=== PATIENT | female | born 2000 | race Caucasian/White ===

== ENCOUNTER 2018-08-06 10:06 | Observation (INO) ==
--- NOTE | 2018-08-06 10:18 | Emergency Department Note ---
ED Provider Note CHIEF COMPLAINT: Abdominal pain HISTORY OF PRESENTING ILLNESS: This is a 18-year-old female who presents to the emergency department with complaints of generalized lower abdominal pain for the past 6 days. She states the pain is worse after eating and with lying down at night, seems improved during the day when she is up and about, the pain does not radiate, she describes it as a dull ache with occasional sharp pains, and rates it as 8/10. She has been trying Pepto-Bismol with minimal relief of symptoms. She has had associated nausea and indigestion, but denies any vomiting or diarrhea. She was seen at [facility] today, sent here for further workup. She denies any fevers or chills, headaches, neck pain, chest pain, shortness of breath, back pain, urinary symptoms, abnormal vaginal bleeding or discharge, or unusual rash. Last menstrual period was 2 weeks ago. REVIEW OF SYSTEMS: A complete 10 point review of systems was reviewed with the patient with pertinent positives and negatives as per history of present illness. All else were negative. PAST MEDICAL HISTORY: Environmental allergies on [employer] SOCIAL HISTORY: Lives at home, she has a [employer] student, denies tobacco use ALLERGIES: No known allergies PHYSICAL EXAM: CONSTITUTIONAL: Pleasant and cooperative. No acute distress. Mildly dehydrated , but otherwise well appearing and well nourished. HEENT: Normocephalic, atraumatic. PERRL, EOMI. Pharynx normal. Tacky mucous membranes. NECK: Supple, full active range of motion without discomfort. RESPIRATORY: Clear to auscultation bilaterally with no wheezing, crackles, rhonchi or stridor. Equal expansion bilaterally. CARDIOVASCULAR: Regular rate and rhythm with no murmurs, rubs or gallops. Normal peripheral perfusion. No edema. GASTROINTESTINAL: Tender to palpation in the right lower quadrant, left lower quadrant, and suprapubic region. Also mildly tender to palpation in the epigastric region. Abdomen is soft and nondistended. No rebound tenderness or guarding. Bowel sounds present in all quadrants. No CVA tenderness bilaterally. MUSCULOSKELETAL: Full range of motion of all joints without discomfort. INTEGUMENTARY: No rash or other significant dermatologic conditions noted. NEUROLOGIC: Alert and oriented X 4 with normal affect. Normal strength and sensation in all 4 extremities. Normal speech. Normal gait observed. ED COURSE AND MEDICAL DECISION MAKING: CC: Patient presenting with complaint of abdominal pain and nausea DIFFERENTIAL DIAGNOSIS: Includes, but not limited to gastroenteritis, gastritis , peptic ulcer disease, ectopic , ovarian cyst, appendicitis, cholecystitis, cholelithiasis, pancreatitis, among others. INTERPRETATION OF LABS: Mild leukocytosis, no anemia, normal platelets, no significant electrolyte abnormalities, normal renal function, mildly elevated T bili, liver enzymes are otherwise normal and normal lipase. UA negative, urine negative. IMAGING: CT abd pelvis IV con only CT DOSE: 280.65 mGy.cm HISTORY: Pain lower abd pain TECHNIQUE: Multiaxial CT images of the abdomen and pelvis were performed following the use of intravenous contrast. A dose lowering technique was utilized adhering to the principles of ALARA. COMPARISON STUDY: None. FINDINGS: The lung bases are clear. The liver, spleen, gallbladder, pancreas, kidneys, and adrenal glands are within normal limits. No bowel wall thickening or obstruction. The pelvic organs are unremarkable. No suspicious lytic or blastic osseous lesions. Radiopaque debris within the bowel consistent with oral medication. No evidence for obstruction. Moderate free fluid within the pelvic cul-de-sac. Complex 2.5 cm left ovarian cyst. Complex collapsing 2.1 cm right ovarian cyst. IMPRESSION: 1. Moderate free fluid within the pelvic cul-de-sac. 2. Complex and/or collapsing bilateral ovarian cysts. 3. Nonobstructive bowel pattern. ----- PELVIC ULTRASOUND, TRANSABDOMINAL AND TRANSVAGINAL HISTORY: Right lower quadrant abdominal pain, bilateral ovarian cysts COMPARISON: Abdomen and pelvis CT 08/06/2018. FINDINGS: Uterus: 6.5 x 3.1 cm. No uterine masses. Endometrial stripe: 5 mm in thickness. Right ovary: Normal in size and demonstrates normal color flow. Left ovary: Normal in size and demonstrates normal color flow. Miscellaneous:Small to moderate amount of pelvic free fluid. Thick-walled tubular structure within the right adnexa. This measures up to 1.4 cm in thickness and abuts the right ovary. In conjunction with the same day CT this likely represents acute appendicitis. IMPRESSION: Thick-walled tubular structure within the right adnexa. This measures up to 1.4 cm in thickness and abuts the right ovary. In conjunction with the same day CT this likely represents acute appendicitis. MEDICATION RECONCILIATION: I attest that I have personally reviewed the patient 's current medication list. INITIAL VITAL SIGNS REVIEW: I reviewed the patient's initial vital signs and interpret them as follows: T: Afebrile; BP: Normotensive; HR: Within normal limits; RR: Within normal limits; Pulse Ox: Within normal limits on room air. Blood pressure screening: The patient was found to have normal blood pressure on screening and does not require follow-up for repeat blood pressure check. MDM SUMMARY: Patient was evaluated at bedside, history and physical exam performed. Patient is alert and oriented, no acute distress, resting calmly in stretcher. She appears mildly dehydrated, but is nontoxic in appearance. Mild diffuse lower abdominal tenderness on exam, no acute abdomen. Orders were placed at bedside for labs, UA and urine , IV fluid bolus for hydration, IV Toradol for pain, IV Zofran for nausea, CT abdomen/pelvis with IV contrast to evaluate for abdominal pain. Patient discussed with Dr. Gilmore, who agrees with my assessment, plan, and disposition. Labs and imaging reviewed as above, notable for mild leukocytosis and mildly elevated T bili, labs are otherwise unremarkable. CT abdomen/pelvis shows bilateral ovarian cysts and moderate free fluid in the pelvis, therefore a pelvic ultrasound was ordered. Pelvic ultrasound reviewed, with normal-appearing ovaries, however there is a concern for a tubular structure that appears to be inflamed, and appears to be consistent with acute appendicitis. This was compared with the CT and was confirmed by radiologist as a concern for acute appendicitis. I spoke on the phone with Domenica Lock PA-C with general surgery, who agrees to evaluate the patient with plans for probable OR. Patient reassessed multiple times throughout ED stay, she has remained hemodynamically stable and her pain is well controlled. The patient was updated on all results and plan for admission and OR for appendicitis, she verbalized understanding and was agreeable to this plan. Patient was stable at time of admission. The chart was completed utilizing [employer] voice recognition software. Grammatical errors, random word insertions, pronoun errors, and incomplete sentences are an occasional consequence of this system due to software limitations, ambient noise, and hardware issues. Any formal questions or concerns about the content, text, or information contained within the body of this dictation should be directly addressed to the nurse practitioner for clarification. Impression & Plan Acute appendicitis Past Med/Surg History Social History Feels Safe at Home: Yes Smoking Status: Never smoker Results & Data Vital Signs Vital Signs - 24 hr 08/06/18 10:11 08/06/18 12:19 08/06/18 13:35 Temperature 36.8 C Temperature Source Oral Sepsis Recent Fever Within 48 Hours No Sepsis New/Unexplained Change in Mental Status No Sepsis Action Taken by Nursing No Action Required Pulse Rate 87 78 Pulse Rate [Finger] 92 H Pulse Rhythm Regular Regular Pulse Rhythm [Finger] Regular Pulse Strength Normal Pulse Strength [Finger] Normal Respiratory Rate 18 16 Respiratory Effort / Characteristics Non-Labored Non-Labored Respiratory Depth Normal Normal Respiratory Pattern Regular Blood Pressure 121/83 Blood Pressure [Right Arm] 123/68 120/68 Blood Pressure Mean 95 Blood Pressure Mean [Right Arm] 86 85 Blood Pressure Position Sitting Blood Pressure Position [Right Arm] Lying Lying Pulse Oximetry 100 100 100 Oxygen Delivery Method Room Air Room Air Room Air 08/06/18 15:19 08/06/18 16:03 Temperature 37.5 C 36.9 C Temperature Source Oral Oral Sepsis Recent Fever Within 48 Hours Sepsis New/Unexplained Change in Mental Status Sepsis Action Taken by Nursing Pulse Rate Pulse Rate [Finger] 96 H 102 H Pulse Rhythm Pulse Rhythm [Finger] Regular Pulse Strength Pulse Strength [Finger] Respiratory Rate 18 16 Respiratory Effort / Characteristics Non-Labored Non-Labored Spontaneous Respiratory Depth Normal Normal Respiratory Pattern Regular Blood Pressure Blood Pressure [Right Arm] 128/69 130/75 Blood Pressure Mean Blood Pressure Mean [Right Arm] 88 93 Blood Pressure Position Blood Pressure Position [Right Arm] Sitting Pulse Oximetry 98 97 Oxygen Delivery Method Room Air Laboratory Data Result diagrams: 08/06/18 10:33 08/06/18 10:33 Lab Results 08/06/18 08/06/18 08/06/18 Range/Units 10:33 10:33 10:58 WBC 12.45 H (4.8-10.8) K/uL RBC 4.65 (4.2-5.4) M/uL Hgb 14.6 (12.0-16.0) g/dL Hct 41.5 (37-47) % MCV 89.2 (80-100) fL MCH 31.4 (25-34) pg MCHC 35.2 (32-36) g/dL RDW Std Deviation 40.4 (36.4-46.3) fL RDW Coeff of Marlen 12.5 (11.5-14.5) % Plt Count 235 (130-400) K/uL MPV 10.4 (7.4-10.4) fL Immature Gran % (Auto) 0.3 % Neut % (Auto) 77.3 % Lymph % (Auto) 12.5 % Pettis % (Auto) 8.1 % Eos % (Auto) 1.7 % Baso % (Auto) 0.1 % Immature Gran # (Auto) 0.04 H (0.00-0.02) K/uL Neut # (Auto) 9.62 H (1.4-6.5) K/uL Lymph # (Auto) 1.56 (1.2-3.4) K/uL Pettis # (Auto) 1.01 H (0.11-0.59) K/uL Eos # (Auto) 0.21 (0-0.5) K/uL Baso # (Auto) 0.01 (0-0.2) K/uL Sodium 137 (136-145) mmol/L Potassium 3.8 (3.5-5.1) mmol/L Chloride 104 (98-107) mmol/L Carbon Dioxide 26 (21-32) mmol/L Anion Gap 7.0 (3-11) BUN 12 (7-18) mg/dl Creatinine 0.99 (0.6-1.2) mg/dl Est Cr Clr Drug Dosing 75.0 ml/min Est GFR ( Amer) 95.1 Est GFR (Non-Af Amer) 82.0 BUN/Creatinine Ratio 11.7 (10-20) Glucose 77 (70-99) mg/dl Calcium 9.6 (8.5-10.1) mg/dl Total Bilirubin 1.3 H (0.2-1) mg/dl AST 14 L (15-37) U/L ALT 26 (12-78) U/L Alkaline Phosphatase 40 L (45-117) U/L Total Protein 7.9 (6.4-8.2) gm/dl Albumin 4.1 (3.4-5.0) gm/dl Globulin 3.8 (2.5-4.0) gm/dl Albumin/Globulin Ratio 1.1 (0.9-2) Lipase 96 (73-393) U/L Urine Color Urine Appearance (Clear) Urine pH (4.5-7.5) Ur Specific Blair (1.000-1.030) Urine Protein (Negative) Urine Glucose (UA) (Negative) Urine Ketones (Negative) Urine Blood (Negative) Urine Nitrite (Negative) Urine Bilirubin (Negative) Urine Urobilinogen (Negative) Ur Leukocyte Esterase (Negative) POC Ur Test NEG (NEG) 08/06/18 Range/Units 10:58 WBC (4.8-10.8) K/uL RBC (4.2-5.4) M/uL Hgb (12.0-16.0) g/dL Hct (37-47) % MCV (80-100) fL MCH (25-34) pg MCHC (32-36) g/dL RDW Std Deviation (36.4-46.3) fL RDW Coeff of Marlen (11.5-14.5) % Plt Count (130-400) K/uL MPV (7.4-10.4) fL Immature Gran % (Auto) % Neut % (Auto) % Lymph % (Auto) % Pettis % (Auto) % Eos % (Auto) % Baso % (Auto) % Immature Gran # (Auto) (0.00-0.02) K/uL Neut # (Auto) (1.4-6.5) K/uL Lymph # (Auto) (1.2-3.4) K/uL Pettis # (Auto) (0.11-0.59) K/uL Eos # (Auto) (0-0.5) K/uL Baso # (Auto) (0-0.2) K/uL Sodium (136-145) mmol/L Potassium (3.5-5.1) mmol/L Chloride (98-107) mmol/L Carbon Dioxide (21-32) mmol/L Anion Gap (3-11) BUN (7-18) mg/dl Creatinine (0.6-1.2) mg/dl Est Cr Clr Drug Dosing ml/min Est GFR ( Amer) Est GFR (Non-Af Amer) BUN/Creatinine Ratio (10-20) Glucose (70-99) mg/dl Calcium (8.5-10.1) mg/dl Total Bilirubin (0.2-1) mg/dl AST (15-37) U/L ALT (12-78) U/L Alkaline Phosphatase (45-117) U/L Total Protein (6.4-8.2) gm/dl Albumin (3.4-5.0) gm/dl Globulin (2.5-4.0) gm/dl Albumin/Globulin Ratio (0.9-2) Lipase (73-393) U/L Urine Color Yellow Urine Appearance Clear (Clear) Urine pH 7.5 (4.5-7.5) Ur Specific Blair 1.018 (1.000-1.030) Urine Protein Negative (Negative) Urine Glucose (UA) Negative (Negative) Urine Ketones Negative (Negative) Urine Blood Negative (Negative) Urine Nitrite Negative (Negative) Urine Bilirubin Negative (Negative) Urine Urobilinogen Negative (Negative) Ur Leukocyte Esterase Negative (Negative) POC Ur Test (NEG) Administered Medications Ioversol (Optiray 320 100ml) 94 ml IV ONCE PRN PRN Reason: Interaction Checking Stop: 08/10/18 11:45 Last Admin: 08/06/18 11:47 Dose: 94 ml Discontinued Medications Bacitracin (Bacitracin) Confirm Administered Dose 45 appln .ROUTE .STK-MED ONE Stop: 08/06/18 15:46 Last Admin: 08/06/18 17:02 Dose: 45 appln Bupivacaine HCl (Marcaine 0.5% Mpf) Confirm Administered Dose 30 ml .ROUTE .STK- MED ONE Stop: 08/06/18 15:46 Last Admin: 08/06/18 17:03 Dose: 20 ml Sodium Chloride (Nss 1000ml) 1,000 mls @ 999 mls/hr IV .Q1H1M ELIO Stop: 08/06/18 11:45 Last Infusion: 08/06/18 12:04 Dose: Infusion: 08/06/18 12:04 Dose: 0 mls/hr Admin: 08/06/18 11:01 Dose: 999 mls/hr Cefoxitin Sodium (Mefoxin) 2,000 mg in 60 mls @ 100 mls/hr IV NOW ONE Stop: 08/06/18 16:35 Last Admin: 08/06/18 17:04 Dose: 100 mls/hr Infusion: 08/06/18 17:03 Dose: 100 mls/hr Admin: 08/06/18 16:27 Dose: 100 mls/hr Ketorolac Tromethamine (Toradol) 15 mg IV NOW STA Stop: 08/06/18 10:39 Last Admin: 08/06/18 11:01 Dose: 15 mg Lidocaine HCl (Xylocaine 1% (Local)) Confirm Administered Dose 20 ml .ROUTE .STK -MED ONE Stop: 08/06/18 15:46 Last Admin: 08/06/18 17:04 Dose: 20 ml Ondansetron HCl (Zofran) 4 mg IV NOW STA Stop: 08/06/18 10:39 Last Admin: 08/06/18 11:01 Dose: 4 mg Discharge Plan Visit Data Chief Complaint: Abdominal Pain Stated Complaint: STOMACH PAINS ED Provider: Urban Gilmore ED Midlevel Provider: Ree Mata Discharge Problem: Acute appendicitis Patient Disposition: Admitted As Inpatient Condition: Good
[2018-08-06] MEDS ORDERED: KETOROLAC TROMETHAMINE 15 MG/ML VIAL IV STA (10:38)
[2018-08-06] MEDS ORDERED: ONDANSETRON INJ 2 MG/ML 2 ML VIAL IV STA (10:38)
[2018-08-06] MEDS ORDERED: SODIUM CHLORIDE 0.9% 1000ML 1,000 ML IV SCH (10:45)
[2018-08-06 10:47] LABS: Basophils # (auto) 0.01 K/uL (0-0.2); Basophils % (auto) 0.1 %; Eosinophils # (auto) 0.21 K/uL (0-0.5); Eosinophils % (auto) 1.7 %; Hematocrit (blood only) 41.5 % (37-47); Hemoglobin 14.6 g/dL (12.0-16.0); Immature Granulocytes # (auto) 0.04 K/uL (0.00-0.02); Immature Granulocytes % (auto) 0.3 %; Lymphocytes # (auto) 1.56 K/uL (1.2-3.4); Lymphocytes % (auto) 12.5 %; Mean Corpuscular Hgb Conc 35.2 g/dL (32-36); Mean Corpuscular Volume 89.2 fL (80-100); Mean Platelet Volume 10.4 fL (7.4-10.4); Monocytes # (auto) 1.01 K/uL (0.11-0.59); Monocytes % (auto) 8.1 %; Neutrophils # (auto) 9.62 K/uL (1.4-6.5); Neutrophils % (auto) 77.3 %; Platelet Count 235 K/uL (130-400); RDW Coefficient of Variation 12.5 % (11.5-14.5); RDW Standard Deviation 40.4 fL (36.4-46.3); Red Blood Count 4.65 M/uL (4.2-5.4); White Blood Count 12.45 K/uL (4.8-10.8)
[2018-08-06 10:59] LABS: Albumin Level 4.1 gm/dl (3.4-5.0); BUN Creatinine Ratio 11.7 (10-20); Calcium 9.6 mg/dl (8.5-10.1); Est GFR (African American) 95.1; Potassium 3.8 mmol/L (3.5-5.1)
[2018-08-06 11:02] LABS: Albumin Globulin Ratio 1.1 (0.9-2); Bilirubin,Total 1.3 mg/dl (0.2-1); Globulin 3.8 gm/dl (2.5-4.0); Total Protein 7.9 gm/dl (6.4-8.2)
[2018-08-06 11:08] LABS: Appearance Urine Clear (Clear); Bilirubin Urine Negative (Negative); Color Urine Yellow; Glucose Urine UA Negative (Negative); Ketones Urine Negative (Negative); Leukocyte Esterase Urine Negative (Negative); Nitrite Urine Negative (Negative); Protein Urine Negative (Negative); Specific Gravity Urine 1.018 (1.000-1.030); Urobilinogen Urine Negative (Negative); pH Urine 7.5 (4.5-7.5)
[2018-08-06] MEDS ORDERED: IOVERSOL 100ml IV PRN (11:46)
--- NOTE | 2018-08-06 12:09 | CT Scan Report ---
CT abd pelvis IV con only CT DOSE: 280.65 mGy.cm HISTORY: Pain lower abd pain TECHNIQUE: Multiaxial CT images of the abdomen and pelvis were performed following the use of intrave nous contrast. A dose lowering technique was utilized adhering to the principles of ALARA. COMPARISON STUDY: None. FINDINGS: The lung bases are clear. The liver, spleen, gallbladder, pancreas, kidneys, and adrenal gl ands are within normal limits. No bowel wall thickening or obstruction. The pelvic organs are unremar kable. No suspicious lytic or blastic osseous lesions. Radiopaque debris within the bowel consistent with oral medication. No evidence for obstruction. Moderate free fluid within the pelvic cul-de-sac. Complex 2.5 cm left ovarian cyst. Complex collapsing 2.1 cm right ovarian cyst. IMPRESSION: 1. Moderate free fluid within the pelvic cul-de-sac. 2. Complex and/or collapsing bilateral ovarian cysts. 3. Nonobstructive bowel pattern. The above report was generated using voice recognition software. It may contain grammatical, syntax or spelling errors. Electronically signed by: Sterling Armendariz M.D. 08/06/2018 12:07 PM
--- NOTE | 2018-08-06 13:55 | Ultrasound Report ---
PELVIC ULTRASOUND, TRANSABDOMINAL AND TRANSVAGINAL HISTORY: Right lower quadrant abdominal pain, bilateral ovarian cysts COMPARISON: Abdomen and pelvis CT 08/06/2018. FINDINGS: Uterus: 6.5 x 3.1 cm. No uterine masses. Endometrial stripe: 5 mm in thickness. Right ovary: Normal in size and demonstrates normal color flow. Left ovary: Normal in size and demonstrates normal color flow. Miscellaneous:Small to moderate amount of pelvic free fluid. Thick-walled tubular structure within th e right adnexa. This measures up to 1.4 cm in thickness and abuts the right ovary. In conjunction wit h the same day CT this likely represents acute appendicitis. IMPRESSION: Thick-walled tubular structure within the right adnexa. This measures up to 1.4 cm in thickness and a buts the right ovary. In conjunction with the same day CT this likely represents acute appendicitis. Electronically signed by: Gamal Carlson M.D. 08/06/2018 1:54 PM
--- NOTE | 2018-08-06 15:41 | History & Physical Report ---
Date of Service August 06, 2018 Assessment & Plan (1) Acute appendicitis: 18 year-old female with 6 day history of lower abdominal pain that increases in nature after eating. CT scan of abdomen and pelvis unremarkable except for some free fluid in the pelvis. Ultrasound of the RLQ shows a thick walled tubular structure in the right adnexa measuring 1.4 cm with small to moderate amount of free fluid in pelvis. Correlating with prior CT scan our radiologist believes this could be acute appendicitis. Labs show leukocytosis of 12.4K. Abdomen is nondistended, tender in RLQ and rebound. No peritonitis. Plan: Plan to take patient to operating room for diagnostic laparoscopy and laparoscopic appendectomy possible open. Discussed the possibility of normal appendix however would remove appendix anyway. Discussed procedure and risks including bleeding, infection, injury to surrounding organs/tissues, cardiopulmonary complication, blood clots. Patient understood and informed consent obtained. 2 gm cefoxitin pre op IV fluids NPO Will go to med/surg post operatively Dr. Smart has seen and examined pt, agrees with above History of Present Illness Chief Complaint: Lower abdominal pain Primary Care Provider: NO PCP Katelin is a pleasant 18 year-old female who presented to emergency department with complaint of abdominal pain for 6 days. States pain is mostly in the lower abdomen and is worse after eating. States she has noticed increasing pain at night as well. Denies of similar pain in the past. Denies of any fever , chills, nausea, vomiting, chest pain, shortness of breath, changes in bowel habits, diarrhea, constipation, blood in stools, black/tarry stools. ER work-up included labs which showed mild leukocytosis of 12K. CT scan of abdomen and pelvis with IV contrast only showed moderate free fluid in the pelvis however there was no mention of the appendix on CT scan. Ultrasound of the RLQ showed a thick walled tubular structure dilated at 1.4 cm abutting the right ovary with small to moderate free fluid in the pelvis. In conjunction with the prior CT scan this could represent acute appendicitis. Allergies Allergy/AdvReac Type Severity Reaction Status Date / Time No Known Allergies Allergy Unverified 08/06/18 10:39 Home Medications Home Medications Medication Instructions Recorded Confirmed Type Control 1 tab PO HS 08/06/18 08/06/18 History bismuth subsalicylate 4 tab PO UD 01/31/19 01/31/19 History [Pepto-Bismol] montelukast [Singulair] 10 mg PO HS 08/06/18 08/06/18 History multivitamin 1 tab PO HS 08/06/18 08/06/18 History Past Med/Surg History Social History Feels Safe at Home: Yes Smoking Status: Never smoker Review of Systems All systems reviewed & are unremarkable except as noted in HPI & below Physical Exam 2 Vital Signs (Past 24 Hours): Last Vital Signs Temp 37.5 C 08/06/18 15:19 Pulse 96 H 08/06/18 15:19 Resp 18 08/06/18 15:19 BP 128/69 08/06/18 15:19 Pulse Ox 98 08/06/18 15:19 Constitutional: WD/WN, vitals as above no acute distress and not ill appearing Respiratory: normal respiratory effort, lungs clear to auscultation Cardiovascular: Rate/Rhythm: regular rhythm and + tachycardic Heart Sounds : normal S1 and normal S2 Gastrointestinal (Abdomen): Inspection/Auscultation: abdomen normal to inspection; abdomen not distended Percussion/Palpation: + abdomen tender ( LLQ and RLQ) and abdomen soft; no guarding and abdomen not rigid + rebound in the RLQ and LLQ Skin: no rashes, warm and dry Psychiatric: A+Ox3, euthymic affect Results & Data Laboratory Results 08/06/18 08/06/18 08/06/18 Range/Units 10:58 10:58 10:33 WBC (4.8-10.8) K/uL RBC (4.2-5.4) M/uL Hgb (12.0-16.0) g/dL Hct (37-47) % MCV (80-100) fL MCH (25-34) pg MCHC (32-36) g/dL RDW Std Deviation (36.4-46.3) fL RDW Coeff of Marlen (11.5-14.5) % Plt Count (130-400) K/uL MPV (7.4-10.4) fL Immature Gran % (Auto) % Neut % (Auto) % Lymph % (Auto) % Craig % (Auto) % Eos % (Auto) % Baso % (Auto) % Immature Gran # (Auto) (0.00-0.02) K/uL Neut # (Auto) (1.4-6.5) K/uL Lymph # (Auto) (1.2-3.4) K/uL [place] # (Auto) (0.11-0.59) K/uL Eos # (Auto) (0-0.5) K/uL Baso # (Auto) (0-0.2) K/uL Sodium 137 (136-145) mmol/L Potassium 3.8 (3.5-5.1) mmol/L Chloride 104 (98-107) mmol/L Carbon Dioxide 26 (21-32) mmol/L Anion Gap 7.0 (3-11) BUN 12 (7-18) mg/dl Creatinine 0.99 (0.6-1.2) mg/dl Est Cr Clr Drug Dosing 75.0 ml/min Est GFR ( Amer) 95.1 Est GFR (Non-Af Amer) 82.0 BUN/Creatinine Ratio 11.7 (10-20) Glucose 77 (70-99) mg/dl Calcium 9.6 (8.5-10.1) mg/dl Total Bilirubin 1.3 H (0.2-1) mg/dl AST 14 L (15-37) U/L ALT 26 (12-78) U/L Alkaline Phosphatase 40 L (45-117) U/L Total Protein 7.9 (6.4-8.2) gm/dl Albumin 4.1 (3.4-5.0) gm/dl Globulin 3.8 (2.5-4.0) gm/dl Albumin/Globulin Ratio 1.1 (0.9-2) Lipase 96 (73-393) U/L Urine Color Yellow Urine Appearance Clear (Clear) Urine pH 7.5 (4.5-7.5) Ur Specific [place] 1.018 (1.000-1.030) Urine Protein Negative (Negative) Urine Glucose (UA) Negative (Negative) Urine Ketones Negative (Negative) Urine Blood Negative (Negative) Urine Nitrite Negative (Negative) Urine Bilirubin Negative (Negative) Urine Urobilinogen Negative (Negative) Ur Leukocyte Esterase Negative (Negative) POC Ur Test NEG (NEG) 08/06/18 Range/Units 10:33 WBC 12.45 H (4.8-10.8) K/uL RBC 4.65 (4.2-5.4) M/uL Hgb 14.6 (12.0-16.0) g/dL Hct 41.5 (37-47) % MCV 89.2 (80-100) fL MCH 31.4 (25-34) pg MCHC 35.2 (32-36) g/dL RDW Std Deviation 40.4 (36.4-46.3) fL RDW Coeff of Marlen 12.5 (11.5-14.5) % Plt Count 235 (130-400) K/uL MPV 10.4 (7.4-10.4) fL Immature Gran % (Auto) 0.3 % Neut % (Auto) 77.3 % Lymph % (Auto) 12.5 % Craig % (Auto) 8.1 % Eos % (Auto) 1.7 % Baso % (Auto) 0.1 % Immature Gran # (Auto) 0.04 H (0.00-0.02) K/uL Neut # (Auto) 9.62 H (1.4-6.5) K/uL Lymph # (Auto) 1.56 (1.2-3.4) K/uL [place] # (Auto) 1.01 H (0.11-0.59) K/uL Eos # (Auto) 0.21 (0-0.5) K/uL Baso # (Auto) 0.01 (0-0.2) K/uL Sodium (136-145) mmol/L Potassium (3.5-5.1) mmol/L Chloride (98-107) mmol/L Carbon Dioxide (21-32) mmol/L Anion Gap (3-11) BUN (7-18) mg/dl Creatinine (0.6-1.2) mg/dl Est Cr Clr Drug Dosing ml/min Est GFR ( Amer) Est GFR (Non-Af Amer) BUN/Creatinine Ratio (10-20) Glucose (70-99) mg/dl Calcium (8.5-10.1) mg/dl Total Bilirubin (0.2-1) mg/dl AST (15-37) U/L ALT (12-78) U/L Alkaline Phosphatase (45-117) U/L Total Protein (6.4-8.2) gm/dl Albumin (3.4-5.0) gm/dl Globulin (2.5-4.0) gm/dl Albumin/Globulin Ratio (0.9-2) Lipase (73-393) U/L Urine Color Urine Appearance (Clear) Urine pH (4.5-7.5) Ur Specific [place] (1.000-1.030) Urine Protein (Negative) Urine Glucose (UA) (Negative) Urine Ketones (Negative) Urine Blood (Negative) Urine Nitrite (Negative) Urine Bilirubin (Negative) Urine Urobilinogen (Negative) Ur Leukocyte Esterase (Negative) POC Ur Test (NEG) Diagnostic Findings CT abd pelvis IV con only CT DOSE: 280.65 mGy.cm HISTORY: Pain lower abd pain TECHNIQUE: Multiaxial CT images of the abdomen and pelvis were performed following the use of intravenous contrast. A dose lowering technique was utilized adhering to the principles of ALARA. COMPARISON STUDY: None. FINDINGS: The lung bases are clear. The liver, spleen, gallbladder, pancreas, kidneys, and adrenal glands are within normal limits. No bowel wall thickening or obstruction. The pelvic organs are unremarkable. No suspicious lytic or blastic osseous lesions. Radiopaque debris within the bowel consistent with oral medication. No evidence for obstruction. Moderate free fluid within the pelvic cul-de-sac. Complex 2.5 cm left ovarian cyst. Complex collapsing 2.1 cm right ovarian cyst. IMPRESSION: 1. Moderate free fluid within the pelvic cul-de-sac. 2. Complex and/or collapsing bilateral ovarian cysts. 3. Nonobstructive bowel pattern. PELVIC ULTRASOUND, TRANSABDOMINAL AND TRANSVAGINAL HISTORY: Right lower quadrant abdominal pain, bilateral ovarian cysts COMPARISON: Abdomen and pelvis CT 08/06/2018. FINDINGS: Uterus: 6.5 x 3.1 cm. No uterine masses. Endometrial stripe: 5 mm in thickness. Right ovary: Normal in size and demonstrates normal color flow. Left ovary: Normal in size and demonstrates normal color flow. Miscellaneous:Small to moderate amount of pelvic free fluid. Thick-walled tubular structure within the right adnexa. This measures up to 1.4 cm in thickness and abuts the right ovary. In conjunction with the same day CT this likely represents acute appendicitis. IMPRESSION: Thick-walled tubular structure within the right adnexa. This measures up to 1.4 cm in thickness and abuts the right ovary. In conjunction with the same day CT this likely represents acute appendicitis.
[2018-08-06] MEDS ORDERED: LIDOCAINE HCL 1% 20 ML VIAL ONE (15:45)
[2018-08-06] MEDS ORDERED: BACITRACIN OINT 15 GM TUBE ONE (15:45)
[2018-08-06] MEDS ORDERED: BUPIVACAINE 0.5 % 5 MG/1 ML MPF 30ML VIAL ONE (15:45)
[2018-08-06] MEDS ORDERED: ATROPINE SULFATE 0.1 MG/ML 10ML SYR IV PRN (15:57)
[2018-08-06] MEDS ORDERED: ePHEDrine sulfate 50 MG/ML AMP IV PRN (15:57)
[2018-08-06] MEDS ORDERED: fentaNYL citrate 100 MCG/2 ML VIAL IV PRN (15:57)
[2018-08-06] MEDS ORDERED: HYDROmorphone INJ 1 MG/ML SYRINGE IV PRN (15:57)
[2018-08-06] MEDS ORDERED: ONDANSETRON INJ 2 MG/ML 2 ML VIAL IV PRN ×2 (15:57→17:30)
[2018-08-06] MEDS ORDERED: PROPOFOL IV EMULSION 10 MG/ML 20 ML VIAL IV ONE (16:08)
[2018-08-06] MEDS ORDERED: LIDOCAINE HCL 2% 2 ML VIAL/AMP(20MG/ML) INFIL ONE (16:08)
[2018-08-06] MEDS ORDERED: fentaNYL citrate 100 MCG/2 ML VIAL ONE (16:09)
[2018-08-06] MEDS ORDERED: MIDAZOLAM HCL 1 MG/ML 2ML VIAL ONE (16:09)
[2018-08-06] MEDS ORDERED: ONDANSETRON INJ 2 MG/ML 2 ML VIAL ONE (16:10)
[2018-08-06] MEDS ORDERED: DEXAMETHASONE SOD INJ 4 MG/ML VIAL ONE (16:10)
--- NOTE | 2018-08-06 16:16 | Anesthesiology Consultation ---
Date of Service August 06, 2018 Assessment & Plan (1) Encounter for pre-operative examination: Chart Review Chart Review: Acceptable Risk for Surgery and Patient NOT seen in Pre Admission Testing Consults Requested none History Surgery Operation Date: 08/06/18 11:20 Proposed Procedures p Laparoscopic Appendectomy - Ladarius Smart MD Height/Weight Height: 5 ft 3 in Weight: 61 kg Allergies Allergy/AdvReac Type Severity Reaction Status Date / Time No Known Allergies Allergy Unverified 08/06/18 10:39 Medications Home Medications Medication Instructions Recorded Confirmed Last Taken Control 1 tab PO HS 08/06/18 08/06/18 08/05/18 bismuth subsalicylate 4 tab PO UD 08/06/18 08/06/18 08/06/18 08:30 [Pepto-Bismol] montelukast [Singulair] 10 mg PO HS 08/06/18 08/06/18 08/05/18 multivitamin 1 tab PO HS 08/06/18 08/06/18 08/05/18 Active Medications Generic Name Dose Route Start Last Admin Trade Name Freq PRN Reason Stop Dose Admin Ioversol 94 ml 08/06/18 11:46 08/06/18 11:47 Optiray 320 100ml IV 08/10/18 11:45 94 ml ONCE PRN Administration Interaction Checking Past Medical History none Past Anesthesia History No Hx of Anesthesia Complications and No Family Hx of Anesthesia Complications History of PONV No Motion Sickness Screening History of Motion Sickness: No Social History Smoking Status: Never smoker Physical Exam Vital Signs Last Vital Signs Temp 37.5 C 08/06/18 15:19 Pulse 96 H 08/06/18 15:19 Resp 18 08/06/18 15:19 BP 128/69 08/06/18 15:19 Pulse Ox 98 08/06/18 15:19 Testing Laboratory Results 08/06/18 10:33 08/06/18 10:33 Urine Color Yellow 08/06/18 10:58 Urine Appearance Clear (Clear) 08/06/18 10:58 Urine pH 7.5 (4.5-7.5) 08/06/18 10:58 Ur Specific [place] 1.018 (1.000-1.030) 08/06/18 10:58 Urine Protein Negative (Negative) 08/06/18 10:58 Urine Glucose (UA) Negative (Negative) 08/06/18 10:58 Urine Ketones Negative (Negative) 08/06/18 10:58 Urine Nitrite Negative (Negative) 08/06/18 10:58 Ur Leukocyte Esterase Negative (Negative) 08/06/18 10:58 08/06/18 10:58 POC Ur Test NEG
[2018-08-06] MEDS: cefOXitin 2,000 MG/60 ML BAG IV ONE ×2 (16:27→17:04)
--- NOTE | 2018-08-06 16:28 | History & Physical Bridge Note ---
Date of Service August 06, 2018 History & Physical Bridge Note I have examined the patient, reviewed the History & Physical and in the interval since the performance of the History & Physical I have noted the following changes of clinical significance: no changes noted
[2018-08-06] MEDS ORDERED: HYDROmorphone INJ 2 MG/ML SYR/VIAL ONE (16:47)
--- NOTE | 2018-08-06 17:30 | Post Operative Brief Note ---
Immediate Post Op Note v1 Date of Surgery August 06, 2018 Pre & Post Diagnosis Operation Date: 08/06/18 11:20 Pre-Op Diagnosis: acute appendicitis Post-Op Diagnosis: acute appendicitis Procedure Operation Date: 08/06/18 11:20 Actual Procedures p Laparoscopic Appendectomy(Not Applicable) - Ladarius Smart MD Surgeon Ladarius Smart MD Staff Consultant MOHIT Charles Estimated Blood Loss 5 Findings Consistent with Post-Op Diagnosis Fluids 1000ml Specimens appendix Drains Tomas Catheter (16 german) Anesthesia Type General Complications none Disposition Accompanied Patient To Recovery: Yes Disposition: Recovery Room Overlapping Procedure I was immediately available: during the entire case.
[2018-08-06] MEDS ORDERED: OXYCODONE/ACETAMINOPHEN 5mg/325mg TAB PO PRN (17:32)
[2018-08-06] MEDS ORDERED: HYDROmorphone INJ 0.5 MG/0.5 ML SYR IV PRN (17:33)
[2018-08-06] MEDS ORDERED: BISMUTH SUBSALICYLATE 262 MG CHEW PO PRN (18:54)
--- NOTE | 2018-08-06 19:08 | Anesthesiology Progress Note ---
Date of Service August 06, 2018 Anesthesia Post Procedure Vital Signs Vital Signs: Temp Pulse Pulse Pulse Resp BP BP 08/06/18 18:35 86 13 131/84 08/06/18 18:25 79 13 134/81 08/06/18 18:15 98.2 F 92 H 13 132/75 08/06/18 18:05 67 12 113/64 08/06/18 17:55 68 12 109/63 08/06/18 17:47 98.1 F 75 14 115/64 08/06/18 16:03 98.4 F 102 H 16 130/75 08/06/18 15:19 99.5 F 96 H 18 128/69 08/06/18 13:35 92 H 16 120/68 08/06/18 12:19 78 123/68 08/06/18 10:11 98.2 F 87 18 121/83 Pulse Ox 08/06/18 18:35 100 08/06/18 18:25 97 08/06/18 18:15 99 08/06/18 18:05 98 08/06/18 17:55 99 08/06/18 17:47 98 08/06/18 16:03 97 08/06/18 15:19 98 08/06/18 13:35 100 08/06/18 12:19 100 08/06/18 10:11 100 Pain Intensity Abdomen: Pain Intensity: 0 Notes Mental Status: alert / awake / arousable and participated in evaluation Patient Amnestic to Procedure: Yes Nausea / Vomiting: adequately controlled Pain: adequately controlled Airway Patency, RR, SpO2: stable & adequate BP & HR: stable & adequate Hydration State: stable & adequate Anesthetic Complications: no major complications apparent and Pt Satisfied with anesthetic care
[2018-08-06] MEDS: D5W AND 1/2NSS + 20MEQ KCL 20 MEQ/1,000 ML BAG IV SCH (19:55)
--- NOTE | 2018-08-06 20:03 | Operative Report ---
DATE OF OPERATION: 08/06/2018 PREOPERATIVE DIAGNOSIS: Acute appendicitis. POSTOPERATIVE DIAGNOSIS: Same. OPERATION: Laparoscopic appendectomy. SURGEON: Ladarius Smart MD ANESTHESIA: General. RUSTIC FENCE BUILDER: Domenica See PA-C ESTIMATED BLOOD LOSS: About 5 mL. FINDINGS: Acute appendicitis. COMPLICATIONS: None. INDICATIONS FOR THE PROCEDURE: This is a 18-year-old female who presented to the ED with 6 days history of abdominal pain. The patient had a CT scan and ultrasound diagnosis of acute appendicitis. I recommended to do the laparoscopic appendectomy, possible open, possible diagnostic laparoscopy. I did talk to the patient about the benefits, risks, and alternative procedures. I indicated the risks may include but not limited such as bleeding, infection, injury to the bowel, abscess. The patient understands. She signed informed consent. She agreed to proceed with procedure. I answered all questions. DETAILS OF PROCEDURE: We brought the patient to the OR, put the patient in the supine position. The patient received SCDs on bilateral legs to prevent DVT. Also, the patient received 2 grams cefoxitin IV for prophylactic antibiotic. The patient received general anesthesia without difficulty, also Tomas catheter insertion. The abdomen was prepped and draped in routine sterile fashion. After time-out, I injected the local anesthesia by using 1% lidocaine mixed with 0.5% Marcaine just above umbilical. Then I made a small incision just above umbilical, opened fascia and opened peritoneum under direct vision, put a Kelin trocar in, connected to CO2 to create pneumoperitoneum. Flow rate at 6 liters per minute, pressure not more than 14 mmHg. Once we got a nice pneumoperitoneum, we put the camera in, looked around the abdomen, and it showed normal finding of small bowel, large bowel, but appendix showed significant inflammation, enlarged, confirmed diagnosis of acute appendicitis and then we put another two 5-mm trocars on the left lower quadrant. Once all trocars in, we put a grasper to hold the appendix and used a harmonic to take down the appendiceal, then used a 45-mm Endo-DONNA staple transection on the base of the appendix, rechecked, the staple line intact, and no active bleeding, no leak. Then we removed the appendix through the catch bag. Then we reinserted Kelin trocar in, connected to CO2 to create pneumoperitoneum again. Looked around the abdomen, the staple line intact and no leak and no active bleeding. Then we removed all trocar under direct vision. No active bleeding from trocar site. Pneumoperitoneum was released. Then we closed umbilical incision, the fascial layer by using #1 Vicryl [id number] x2, closed subcutaneous layer by using 2-0 Vicryl interrupted and closed skin by using 4-0 Vicryl continuous running, closed another two 5-mm trocar sites skin only by using 4-0 Vicryl. Then we put the dressing on. The patient tolerated the procedure well. All instrument, needle, and sponge counts were correct x2 at the end of case. The patient transferred to recovery room in stable condition. The specimen sent to pathology. I attest to the content of the Intraoperative Record and any orders documented therein. Any exception s are noted below.
[2018-08-06] MEDS ORDERED: MULTIVITAMIN TAB PO SCH (21:00)
[2018-08-06] MEDS ORDERED: MONTELUKAST SODIUM 10 MG TABLET PO SCH (21:00)
[2018-08-07] MEDS ORDERED: INFLUENZA ADMINISTRATION CHARGE ONE (05:15)
[2018-08-07] MEDS ORDERED: INFLUENZA VIRUS QUAD VACCINE 0.5 ML SYR IM ONE (05:15)
[2018-08-07] MEDS: D5W AND 1/2NSS + 20MEQ KCL 20 MEQ/1,000 ML BAG IV SCH (06:58)
[2018-08-07 07:24] LABS: Hematocrit (blood only) 37.5 % (37-47); Hemoglobin 12.9 g/dL (12.0-16.0); Immature Granulocytes # (auto) 0.02 K/uL (0.00-0.02); Immature Granulocytes % (auto) 0.2 %; Lymphocytes % (auto) 7.6 %; Mean Corpuscular Hgb Conc 34.4 g/dL (32-36); Mean Corpuscular Volume 89.7 fL (80-100); Mean Platelet Volume 10.4 fL (7.4-10.4); Monocytes # (auto) 0.64 K/uL (0.11-0.59); Monocytes % (auto) 6.9 %; Neutrophils # (auto) 7.88 K/uL (1.4-6.5); Neutrophils % (auto) 85.3 %; Platelet Count 207 K/uL (130-400); RDW Coefficient of Variation 12.4 % (11.5-14.5); RDW Standard Deviation 40.4 fL (36.4-46.3); Red Blood Count 4.18 M/uL (4.2-5.4); White Blood Count 9.24 K/uL (4.8-10.8)
--- NOTE | 2018-08-07 08:25 | Anesthesiology Progress Note ---
Date of Service August 07, 2018 Anesthesia Post Procedure Vital Signs Vital Signs: Temp Pulse Pulse Pulse Pulse Resp BP 08/07/18 07:51 36.7 C 66 16 08/07/18 03:31 36.8 C 58 L 16 08/06/18 23:24 36.8 C 70 16 08/06/18 21:46 36.8 C 85 18 08/06/18 20:55 36.7 C 95 H 18 08/06/18 19:55 36.8 C 100 H 18 08/06/18 19:25 37.2 C 88 18 08/06/18 19:13 36.9 C 91 H 18 08/06/18 18:35 86 13 08/06/18 18:25 79 13 08/06/18 18:15 36.8 C 92 H 13 08/06/18 18:05 67 12 08/06/18 17:55 68 12 08/06/18 17:47 36.7 C 75 14 08/06/18 16:03 36.9 C 102 H 16 08/06/18 15:19 37.5 C 96 H 18 08/06/18 13:35 92 H 16 08/06/18 12:19 78 08/06/18 10:11 36.8 C 87 18 121/83 BP BP Pulse Ox 08/07/18 07:51 111/62 100 08/07/18 03:31 105/64 98 08/06/18 23:24 119/69 98 08/06/18 21:46 111/67 96 08/06/18 20:55 126/70 96 08/06/18 19:55 118/76 95 08/06/18 19:25 112/85 95 08/06/18 19:13 128/75 100 08/06/18 18:35 131/84 100 08/06/18 18:25 134/81 97 08/06/18 18:15 132/75 99 08/06/18 18:05 113/64 98 08/06/18 17:55 109/63 99 08/06/18 17:47 115/64 98 08/06/18 16:03 130/75 97 08/06/18 15:19 128/69 98 08/06/18 13:35 120/68 100 08/06/18 12:19 123/68 100 08/06/18 10:11 100 Pain Intensity Abdomen: Pain Intensity: 1 Notes Mental Status: alert / awake / arousable Patient Amnestic to Procedure: Yes Nausea / Vomiting: adequately controlled Pain: adequately controlled Airway Patency, RR, SpO2: stable & adequate BP & HR: stable & adequate Hydration State: stable & adequate Anesthetic Complications: no major complications apparent
--- NOTE | 2018-08-07 09:52 | Surgery Progress Note ---
Date of Service August 07, 2018 Assessment & Plan (1) Acute appendicitis: POD # 1 s/p lap appendectomy -vss, afebrile - leukcoytosis resolved - post op pain controlled - no n/v Plan: Advance diet as tolerated Continue Percocet prn pain Encouraged ambulation in hallway Decrease IV fluids to 75 cc/hr Discharge instructions reviewed f/u surgical office in 1-2 weeks discharge this afternoon once ambulates and tolerates diet Dr. Smart has seen pt, agrees with above Subjective feeling fine, preoperative pain resolved post op pain at incisions, controlled has not had breakfast yet no n/v urinating without difficulty has not ambulated hallway Physical Exam 2 Vital Signs (Past 24 Hours): Last Vital Signs Temp 36.7 C 08/07/18 07:51 Pulse 66 08/07/18 07:51 Resp 16 08/07/18 07:51 BP 111/62 08/07/18 07:51 Pulse Ox 100 08/07/18 07:51 Constitutional: WD/WN, vitals as above no acute distress Respiratory: normal respiratory effort; no respiratory distress Gastrointestinal (Abdomen): Inspection/Auscultation: abdomen normal to inspection; abdomen not distended Percussion/Palpation: + abdomen tender (at incisions sites appropriate post op) and abdomen soft; no guarding and abdomen not rigid Skin: no rashes, warm and dry + incision (covered with dressings c/d/i) Psychiatric: A+Ox3, euthymic affect Results & Data Laboratory Results 08/07/18 08/06/18 08/06/18 Range/Units 07:03 10:58 10:58 WBC 9.24 (4.8-10.8) K/uL RBC 4.18 L (4.2-5.4) M/uL Hgb 12.9 (12.0-16.0) g/dL Hct 37.5 (37-47) % MCV 89.7 (80-100) fL MCH 30.9 (25-34) pg MCHC 34.4 (32-36) g/dL RDW Std Deviation 40.4 (36.4-46.3) fL RDW Coeff of Marlen 12.4 (11.5-14.5) % Plt Count 207 (130-400) K/uL MPV 10.4 (7.4-10.4) fL Immature Gran % (Auto) 0.2 % Neut % (Auto) 85.3 % Lymph % (Auto) 7.6 % [place] % (Auto) 6.9 % Eos % (Auto) 0.0 % Baso % (Auto) 0.0 % Immature Gran # (Auto) 0.02 (0.00-0.02) K/uL Neut # (Auto) 7.88 H (1.4-6.5) K/uL Lymph # (Auto) 0.70 L (1.2-3.4) K/uL [place] # (Auto) 0.64 H (0.11-0.59) K/uL Eos # (Auto) 0.00 (0-0.5) K/uL Baso # (Auto) 0.00 (0-0.2) K/uL Sodium (136-145) mmol/L Potassium (3.5-5.1) mmol/L Chloride (98-107) mmol/L Carbon Dioxide (21-32) mmol/L Anion Gap (3-11) BUN (7-18) mg/dl Creatinine (0.6-1.2) mg/dl Est Cr Clr Drug Dosing ml/min Est GFR ( Amer) Est GFR (Non-Af Amer) BUN/Creatinine Ratio (10-20) Glucose (70-99) mg/dl Calcium (8.5-10.1) mg/dl Total Bilirubin (0.2-1) mg/dl AST (15-37) U/L ALT (12-78) U/L Alkaline Phosphatase (45-117) U/L Total Protein (6.4-8.2) gm/dl Albumin (3.4-5.0) gm/dl Globulin (2.5-4.0) gm/dl Albumin/Globulin Ratio (0.9-2) Lipase (73-393) U/L Urine Color Yellow Urine Appearance Clear (Clear) Urine pH 7.5 (4.5-7.5) Ur Specific [place] 1.018 (1.000-1.030) Urine Protein Negative (Negative) Urine Glucose (UA) Negative (Negative) Urine Ketones Negative (Negative) Urine Blood Negative (Negative) Urine Nitrite Negative (Negative) Urine Bilirubin Negative (Negative) Urine Urobilinogen Negative (Negative) Ur Leukocyte Esterase Negative (Negative) POC Ur Test NEG (NEG) 08/06/18 08/06/18 Range/Units 10:33 10:33 WBC 12.45 H (4.8-10.8) K/uL RBC 4.65 (4.2-5.4) M/uL Hgb 14.6 (12.0-16.0) g/dL Hct 41.5 (37-47) % MCV 89.2 (80-100) fL MCH 31.4 (25-34) pg MCHC 35.2 (32-36) g/dL RDW Std Deviation 40.4 (36.4-46.3) fL RDW Coeff of Marlen 12.5 (11.5-14.5) % Plt Count 235 (130-400) K/uL MPV 10.4 (7.4-10.4) fL Immature Gran % (Auto) 0.3 % Neut % (Auto) 77.3 % Lymph % (Auto) 12.5 % [place] % (Auto) 8.1 % Eos % (Auto) 1.7 % Baso % (Auto) 0.1 % Immature Gran # (Auto) 0.04 H (0.00-0.02) K/uL Neut # (Auto) 9.62 H (1.4-6.5) K/uL Lymph # (Auto) 1.56 (1.2-3.4) K/uL [place] # (Auto) 1.01 H (0.11-0.59) K/uL Eos # (Auto) 0.21 (0-0.5) K/uL Baso # (Auto) 0.01 (0-0.2) K/uL Sodium 137 (136-145) mmol/L Potassium 3.8 (3.5-5.1) mmol/L Chloride 104 (98-107) mmol/L Carbon Dioxide 26 (21-32) mmol/L Anion Gap 7.0 (3-11) BUN 12 (7-18) mg/dl Creatinine 0.99 (0.6-1.2) mg/dl Est Cr Clr Drug Dosing 75.0 ml/min Est GFR ( Amer) 95.1 Est GFR (Non-Af Amer) 82.0 BUN/Creatinine Ratio 11.7 (10-20) Glucose 77 (70-99) mg/dl Calcium 9.6 (8.5-10.1) mg/dl Total Bilirubin 1.3 H (0.2-1) mg/dl AST 14 L (15-37) U/L ALT 26 (12-78) U/L Alkaline Phosphatase 40 L (45-117) U/L Total Protein 7.9 (6.4-8.2) gm/dl Albumin 4.1 (3.4-5.0) gm/dl Globulin 3.8 (2.5-4.0) gm/dl Albumin/Globulin Ratio 1.1 (0.9-2) Lipase 96 (73-393) U/L Urine Color Urine Appearance (Clear) Urine pH (4.5-7.5) Ur Specific [place] (1.000-1.030) Urine Protein (Negative) Urine Glucose (UA) (Negative) Urine Ketones (Negative) Urine Blood (Negative) Urine Nitrite (Negative) Urine Bilirubin (Negative) Urine Urobilinogen (Negative) Ur Leukocyte Esterase (Negative) POC Ur Test (NEG) _ (1) Acute appendicitis Acute appendicitis type: Appendicitis abscess presence: Appendicitis gangrene presence: Appendicitis perforation presence:
--- NOTE | 2018-08-10 11:01 | Discharge Summary ---
Date of Service August 10, 2018 Admission HPI Per Admitting Provider Katelin is a pleasant 18 year-old female who presented to emergency department with complaint of abdominal pain for 6 days. States pain is mostly in the lower abdomen and is worse after eating. States she has noticed increasing pain at night as well. Denies of similar pain in the past. Denies of any fever , chills, nausea, vomiting, chest pain, shortness of breath, changes in bowel habits, diarrhea, constipation, blood in stools, black/tarry stools. ER work-up included labs which showed mild leukocytosis of 12K. CT scan of abdomen and pelvis with IV contrast only showed moderate free fluid in the pelvis however there was no mention of the appendix on CT scan. Ultrasound of the RLQ showed a thick walled tubular structure dilated at 1.4 cm abutting the right ovary with small to moderate free fluid in the pelvis. In conjunction with the prior CT scan this could represent acute appendicitis. Principal Diagnosis RLQ abdominal pain Acute appendicitis Discharge Exam Constitutional WD/WN, vitals as above no acute distress and not ill appearing Respiratory normal respiratory effort, lungs clear to auscultation normal respiratory effort; no respiratory distress Cardiovascular Rate/Rhythm: regular rhythm and + tachycardic Heart Sounds: normal S1 and normal S2 Gastrointestinal (Abdomen) Inspection/Auscultation: abdomen normal to inspection; abdomen not distended Percussion/Palpation: + abdomen tender (at incisions sites appropriate post op) and abdomen soft; no guarding and abdomen not rigid Skin no rashes, warm and dry + incision (covered with dressings c/d/i) Psychiatric A+Ox3, euthymic affect Discharge Data Allergies Allergy/AdvReac Type Severity Reaction Status Date / Time No Known Allergies Allergy Unverified 08/06/18 10:39 Procedures Performed Operation Date: 08/06/18 11:20 Actual Procedures p Laparoscopic Appendectomy(Not Applicable) - Ladarius Smart MD Ordered Studies 08/06/18 10:55 CT abd pelvis IV con only Stat 08/06/18 12:21 US pelvic complete Stat US transvaginal Stat Hospital Course (1) Acute appendicitis: Patient was taken to operating room for diagnostic laparoscopy laparoscpoic appendectomy possible open. Patient was found to have acute appendicitis without perforation or abscess. Patient tolerated procedure well without any difficulty. Was transferred to recovery and then to medical/ surgical floor for post op care. Started on IV fluids, PO Percocet with breakthrough IV Dilaudid, IV Zofran prn nausea, clear liquid diet, activity as tolerated, SCDs for DVT prophylaxis. POD # 1 patient evaluated, vss, afebrile, leukcoytosis resolved,post op pain controlled and preoperative pain resolved, no n/v. She ordered clear liquids for breakfast and diet was advanced as tolerated. Encouraged to ambulate the hallway. IV fluids were decreased to 75 mls/hr. Patient was discharge home in the afternoon on pod # 1 in stable condition. Total Time Total Time Spent Total Time Spent (In Minutes): 30 Total Time Includes: Examination of the Patient, Discharge Planning and Medication Reconciliation Discharge Plan Discharge Items Patient Disposition: Home - Self-Care Reason For Visit: ABDOMINAL PAIN Discharge Diagnosis: Acute appendicitis Condition: Good Discharge Goals: Decrease discomfort and Improve function Activity: Per 'Additional Instructions' section Non-emergency contact: Surgeon Call non-emergency contact if: your symptoms worsen, your pain is not controlled , your pain is worsening, your pain is unusual for you, your pain is concerning for you, you have a fever, your temperature is above 101, your wound has increased redness and your wound has increased drainage Follow-up/Referrals: Ladarius Smart MD [Physician] - (Please follow-up in surgical office in 1-2 weeks with Domenica See PA-C Please call office at [phone] to make an appointment.) PCP,NO [Primary Care Provider] - Diet: Regular Diet Comment: advance diet to regular diet as tolerated Addtl Provider Instructions: No heavy lifting over 20 pounds for 3-4 weeks No strenuous activity until cleared by surgeon No submerging incisions underwater for 2 weeks (no bathing, swimming, or hot tubs) No driving while taking narcotic pain medication or until you are pain free You may shower in 3 days, sponge bath and wash hair in meantime. Keep dressing dry. After 3 days you may shower and remove outer dressings. Keep steri strips on incisions for 7 days and then remove. Walking and light activity is encouraged daily to prevent blood clots from forming in your legs. You will be given prescription for narcotic pain medication (Percocet) as needed for moderate to severe pain. Take as directed. This medication may cause drowsiness or constipation. You may take extra strength Ibuprofen as needed for mild pain -Can take 600 mg of Ibuprofen every 6 hours as needed for pain Avoid taking extra strength Tylenol with Percocet as Percocet has Tylenol in it. To avoid constipation: drink plenty of liquids, avoid foods that constipate, and daily walking. You may take OTC stool softener (Colace) daily or twice a day while taking pain medication. If those measures do not work, you may take Miralax or Milk of Magnesia. Follow-up in surgical office in 1-2 weeks, please call office at [phone] to make an appointment. Prescriptions: New oxycodone-acetaminophen 5-325 mg tablet 1 tab PO Q4H PRN (Reason: pain) Qty: 18 RF: 0 Continue multivitamin Tablet 1 tab PO HS RF: 0 bismuth subsalicylate [Pepto-Bismol] 262 mg Tablet,Chewable 4 tab PO UD RF: 0 montelukast [Singulair] 10 mg Tablet 10 mg PO HS RF: 0 Control 1 tab PO HS RF: 0 Stand-Alone Forms: My [facility], Opioid Pain Management, Work/ School Release (Inpt) Discharge Orders: Discharge Order (Routine); Ordered 08/07/18 Ordered By: Domenica See Admission Data Admit Date/Time: 08/06/18 17:30 Attending Provider: Ladarius Smart Admit Provider: Ladarius Smart Primary Care Provider: PCP,NO Service: Surgical Services Other Interventions: Discharge Summary Assessment (RN) Last Done: 08/07/18 11:54 Pending Studies at Discharge: Yes (appendix pathology, will be reviewed at follow-up visit) DC Date/Time DO NOT enter until pt leaves facility: 08/07/18 13:00
== END 2018-08-07 13:00 | disposition home or self-care (01) ==
LOC: ED 10:06 → 3W 15:57 → OR 15:57 → 3W 15:58